=== PATIENT | female | born 1940 | race Caucasian/White ===

== ENCOUNTER → 2017-02-19 | Outpatient (CLI) | payer OTHER | LOC: CIMAGING 14:57 | PROVIDERS: ATTEND Surgery | DX: I70.8 Atherosclerosis of other arteries (principal) | CPT/HCPCS: 93880-PO ==

== ENCOUNTER 2018-01-29 17:21 | Inpatient (IN) | payer OTHER ==
--- NOTE | 2018-01-29 17:57 | EDPHY ---
H & P Stated Complaint: HYPOXIA TACHYCRDIA PO2 USUALLY IN 80'S BUT NOW IN 70'S Time Seen by Provider: 01/29/18 17:36 HPI/ROS: CHIEF COMPLAINT: Hypoxia, headache HISTORY OF PRESENT ILLNESS: 77-year-old female went to see her primary care physician today with complaints of a headache which are occurring at night while she is sleeping for the last week. She was noted to be hypoxic to 77% on arrival to her primary care physician's office. Patient herself states that on occasions over the past several years she has been told she has low oxygen with readings in the 80s but she has never had a diagnosis a never been told to be on home O2. Patient's primary care office reports that the last time her sats were checked there they were in the 90s. Patient denies any fevers or chills. She denies any cold symptoms, cough, upper respiratory infection symptoms, shortness of breath, palpitations, vomiting, diarrhea, lightheadedness, chest pain. Patient does report that her father law has been admitted to the hospital for pneumonia and she has been spending time with him. She however denies feeling ill or having a fever. She does report the last 3 months of night sweats. REVIEW OF SYSTEMS: A comprehensive 10 system review of systems was reviewed and is otherwise negative aside from elements mentioned in the history of present illness. PAST MEDICAL HISTORY: Patient denies history of pulmonary disease, COPD, pneumonia, hypertension, or cardiac issues. Denies history of DVTs or PEs. SOCIAL HISTORY: Nonsmoker. VITAL SIGNS Reviewed by me. O2 sat at 65% when walking to the bathroom. GENERAL: Well-developed, well-nourished, appears in no respiratory distress. Good color.. HEENT: Atraumatic. Eyes: No icterus, no injection. Mouth: moist mucous membranes. No erythema or lesions. Neck: supple with no adenopathy. LUNGS: Clear to auscultation bilaterally, no wheezes, rhonchi or rales. CARDIAC: Regular rate, occasional premature beat, no rubs murmurs or gallops. ABDOMEN: Soft, nontender, nondistended, bowel sounds normal. BACK: No CVA tenderness. EXTREMITIES: No trauma. Trace edema. NEURO: Alert and oriented, grossly nonfocal. SKIN: Warm and dry, no rash. PSYCHIATRIC: Normal mentation, no agitation. - Personal History Current Tetanus Diphtheria and Acellular Pertussis (TDAP): Unsure - Medical/Surgical History Hx Asthma: No Hx Chronic Respiratory Disease: No Hx Diabetes: No Hx Cardiac Disease: No Hx Renal Disease: No Hx Cirrhosis: No Hx Alcoholism: No Hx HIV/AIDS: No Hx Splenectomy or Spleen Trauma: No Other PMH: HYPOXIA - Social History Smoking Status: Never smoked Constitutional: Initial Vital Signs Temperature (C) 36.6 C 01/29/18 17:26 Heart Rate 95 01/29/18 17:26 Respiratory Rate 18 01/29/18 17:26 Blood Pressure 166/103 H 01/29/18 17:26 O2 Sat (%) 77 L 01/29/18 17:26 O2 Delivery Mode Room Air O2 (L/minute) 6 Allergies/Adverse Reactions: Sulfa (Sulfonamide Antibiotics) Allergy (Verified 01/29/18 17:26) Home Medications: Medication Instructions Recorded Herbals/Supplements -Info Only 1 ea PO DAILY 01/29/18 Albuterol Sulfate [Proair Hfa] 8.5 gm IH TID #1 hfa.aer.ad 01/31/18 predniSONE 60 mg PO DAILY #18 tablet 01/31/18 Medical Decision Making - Diagnostics EKG Interpretation: 12-LEAD EKG: Please see the full report in [facility]. My interpretation: [ ] Imaging Results: CT scan chest Impression: 1. No evidence of pulmonary embolism, thoracic aortic dissection, or pericardial effusion. 2. Bibasilar atelectasis with more patchy consolidation in the left lower lobe compatible with pneumonia. 3. 3.1 cm cystic lesion in the dome the liver incompletely characterized but may represent simple hepatic cyst. 4. 2.3 cm left adrenal nodule incompletely characterized. Further evaluation with three-phase CT abdomen is recommended. Dr. Rivers was notified of these findings by telephone at 9:30 PM on 2017. Dictated By: Kenroy Tompkins MD Imaging: Discussed imaging studies w/ house calls nurse practitioner Radiologist ED Course/Re-evaluation: 77-year-old female presenting with significant hypoxemia. Patient does state that on occasion her sats have been measuring in the 80s but she has never been given a respiratory diagnosis of O2. She complained of a nighttime headache for the last week and was noted by her PCP to be hypoxic to 77%. While in the emergency department, after walking to the bathroom, her sat was 65%. Evaluation: EKG demonstrating normal sinus rhythm. No acute ischemic changes. Chest x-ray no infiltrate. Some hypoventilation and by basilar atelectasis. Labs: No significant findings related to patient's significant hypoxemia. CT scan of the chest with IV contrast was ordered to evaluate for venous thromboemboli. Patient tells me that she had a CT angiogram of her neck in the past, and following this, she developed acute gout in both feet. She is somewhat reluctant to undergo CT scanning here, but I did persuade her that we will premedicate her with Solu-Medrol and will certainly watch for the development of any gouty arthritis following her CT scan. CT scan with IV contrast: patchy consolidation in LLL, possible pneumonia. No PE. Patient already admitted at time of these results. Patient's course discussed with Dr. Ben Liriano. Patient will be admitted to the medicine service for further evaluation of her significant hypoxemia. Differential Diagnosis: Differential diagnoses for the patient's symptom complex was considered including but not limited to pneumonia, COPD, bronchitis, pulmonary embolism, cardiac causes. Consult/Admit Bed Type: Dr. Ben Holt, [facility] - Data Points Laboratory Results: Laboratory Results 01/29/18 17:43 01/29/18 17:43 Medications Given: Discontinued Medications Albuterol/Ipratropium (Duoneb) 3 ml IH QID [facility] Stop: 07/29/18 05:59 Last Admin: 01/31/18 11:35 Dose: 3 ml Enoxaparin Sodium (Lovenox) 40 mg SC DAILY [facility] Stop: 07/29/18 08:59 Last Admin: 01/31/18 12:10 Dose: Not Given Sodium Chloride (Ns) 1,000 mls @ 0 mls/hr IV ONCE ONE; Wide Open PRN Reason: Protocol Stop: 01/29/18 19:21 Last Admin: 01/29/18 19:43 Dose: 1,000 mls Levofloxacin/Dextrose (Levaquin 750 Mg (Premix)) 150 mls @ 100 mls/hr IV DAILY@ 2300 TAMRA PRN Reason: Protocol Stop: 02/28/18 22:59 Last Admin: 01/30/18 22:28 Dose: 150 mls Lorazepam (Ativan) 0.25 mg PO HS PRN PRN Reason: Sleep/Insomnia Stop: 07/29/18 00:19 Last Admin: 01/30/18 00:38 Dose: 0.25 mg Lorazepam (Ativan) 0.5 mg PO HS PRN PRN Reason: Sleep/Insomnia Stop: 07/29/18 00:19 Last Admin: 01/30/18 22:29 Dose: 0.5 mg Methylprednisolone Sodium Succinate (Solu-Medrol) 125 mg IVP EDNOW ONE Stop: 01/29/18 19:22 Last Admin: 01/29/18 19:44 Dose: 125 mg Prednisone (Prednisone) 60 mg PO DAILY TAMRA Stop: 07/29/18 09:59 Last Admin: 01/31/18 09:29 Dose: 60 mg Point of Care Test Results: Chemistry 01/29/18 18:20 POC Troponin I 0.01 ng/mL ng/mL (0.00-0.08) Blood Gas/Lactic Acid-Arterial 01/29/18 18:27 POC Blood Source VENOUS Blood Gas/Lactic Acid-Venous 01/29/18 18:27 POC VBG pH 7.43 H (7.31-7.42) POC VBG pCO2 42 mmHg mmHg (40-44) POC VBG pO2 36 mmHg mmHg (35-40) POC VBG HCO3 28 mEq/L H mEq/L (22-26) POC VBG Total CO2 29 mEq/L H mEq/L (21-27) POC VBG Base Excess 3.0 mEq/L H mEq/L (-2.5-2.5) POC Mix VBG O2 Sat 71 % % (65-75) POC Lactic Acid Tawanda 0.9 mmol/L mmol/L (0.7-2.1) Departure - Departure Disposition: [facility] Acute Clinical Impression: Hypoxia Condition: Fair
[2018-01-29 18:18] LABS: PLATELET COUNT 248 10^3/uL (150-400)
[2018-01-29] MEDS ORDERED: IOPAMIDOL (ISOVUE 370) 100 ML BTL IV ONE (19:04)
[2018-01-29] MEDS ORDERED: NS 1,000 ML IV ONE (19:20)
[2018-01-29] MEDS ORDERED: methylPREDNISolone SOD SUCC 125 MG/2 ML VIAL IVP ONE (19:21)
[2018-01-29] MEDS ORDERED: ACETAMINOPHEN 325 MG TAB PO PRN (21:40)
[2018-01-29] MEDS ORDERED: HYDROCODONE/APAP 5/325 TAB PO PRN (21:40)
[2018-01-29] MEDS ORDERED: ALBUTEROL 3 ML DEYVIAL IH PRN (21:40)
[2018-01-29] MEDS ORDERED: ONDANSETRON DISINTEGRATING 4 MG TAB PO PRN (21:40)
[2018-01-29] MEDS ORDERED: ONDANSETRON 4 MG/2 ML VIAL IVP PRN (21:40)
[2018-01-29] MEDS ORDERED: hydrALAZINE 20 MG/ML VIAL IVP PRN (22:22)
--- NOTE | 2018-01-29 23:00 | GHP ---
DATE OF ADMISSION: 01/29/2018 CHIEF COMPLAINT: Low oxygen. HISTORY: This is a 77-year-old female with a past medical history of carotid body tumor, status post removal, otherwise relatively benign history, presenting with complaints of noticing that she has adkins d low O2. The patient notes she first noticed this after her surgery in 2015, at which time she was in the 80s. She was discharged home without oxygen, as her surgeon presumed this was postop hypoxia that would improve. She notes that more recently, she has been developing headaches occurring largel y at night and became concerned that perhaps, again, she had low oxygen. She notes her father reside s in a intermediate, and while there, she checked her oxygen and noted that it was 82%. Apparently, at her primary care physician's office today, her oxygen was also noted to be 77%. She, otherwise, s tates that she has felt fine other than the headaches that occur at night. She does state that somet imes she wakes up at night gasping for air, though she is uncertain if she snores or has sleep apnea. She also notes that she cannot sleep flat at night or she will feel short of breath, so she does sl eep somewhat propped up. She denies any cough or wheeze. She has not had any fevers or chills. She does state that she has been spending time with her [id number], who has recently been diagnosed w ith pneumonia. PAST MEDICAL HISTORY: Includes: 1. Carotid body tumor, status post removal. 2. Chronic knee issues, status post meniscal repair and in need of knee replacements. 3. Hysterectomy. 4. Cholecystectomy. 5. Ankle reconstruction. FAMILY HISTORY: Father with colon cancer in his 80s. Sister also with low O2 for unclear reasons. SOCIAL HISTORY: She is a never smoker. She drinks alcohol regularly but denies heavy drinking. She is . REVIEW OF SYSTEMS: 10-point review of systems obtained, negative except as per HPI. HOME MEDICATIONS: None. ALLERGIES: Sulfa. PHYSICAL EXAM: VITAL SIGNS: BP 178/120, heart rate 106, respiratory rate 16, O2 sats 92% on 6 L. S he was 65% on room air. GENERAL APPEARANCE: This is a well-developed/well-nourished female. She is awake and alert, in no acute distress. EYES: Anicteric. HENT: Oropharynx clear. CARDIOVASCULAR: Regular rate and rhythm. No M/R/G. PULMONARY: Poor inspiratory effort and overall shallow breath ing. Air sounds are symmetrical and clear, without wheezes, rales, or rhonchi appreciated. Question slight crackles in the left base that cleared with cough. ABDOMEN: Soft, nontender, nondistended. EXTREMITIES: No clubbing, cyanosis, or edema. SKIN: Warm, dry, well perfused. NEURO/PSYCH: Orie nted, appropriate, pleasant. CLINICAL DATA/LABS REVIEWED: Notable for a white blood cell count of 4.4, hematocrit of 45.7, MCV of 101.6, platelets of 248. D-dimer is 0.4. Chemistry: Unremarkable. ProBNP 657. Chest x-ray, pers onally reviewed and interpreted, shows hypoventilation, bibasilar atelectasis without pneumonia or ef fusion. Chest CTA shows no evidence of PE or pericardial effusion. There is bibasilar atelectasis with a mor e patchy consolidation in the left lower lobe compatible with pneumonia, likely hepatic cyst and an a drenal nodule. ASSESSMENT/PLAN: This is a 77-year-old female with a limited past medical history, presenting with a cute hypoxic respiratory failure. 1. Acute hypoxic respiratory failure. The patient believes this may be more of a chronic issue, tho ugh difficult to assess by history. Per her primary care physician's records, her O2 sats in the off ice have typically been in the 90s. At this point, her imaging is most consistent with atelectasis a nd possible left lower lobe pneumonia as per next. Plan for now will be to treat with antibiotics, i ncentive spirometry, nebulizer treatments. I would recommend that she have followup for pulmonary fu nction testing, as well as a sleep study. She likely will need to be discharged home on oxygen. Als o, we will obtain an echocardiogram given noted history of what sounds like paroxysmal nocturnal dysp monique and orthopnea. 2. Question pneumonia. Imaging consistent with possible left lower lobe pneumonia, though she does not give any symptoms consistent with that other than the hypoxia. Respiratory PCR was negative. We will obtain blood cultures and procalcitonin. We will start levofloxacin for now. We will have pat ient do incentive spirometry q.1 hour given her atelectasis and shallow inspiration noted. 3. Hypertension/uncontrolled. Patient with relatively high blood pressure since arriving here. Loo edel back, this has been an issue in the past as well. She is not on any antihypertensive medication s at home. I will start hydralazine p.r.n. Again, obtaining an echocardiogram in the morning but qu moiz some component of hypertensive cardiomyopathy contributing to her hypoxia. She will likely need to be discharged home on antihypertensives. Again, would also work her up for obstructive sleep apne a. 4. Adrenal nodule, incidental finding on CT imaging. Radiology does recommend followup with a 3-pha se CT abdomen, though given that she received diet today, we will hold off on that for the time being . This could be either arranged as an outpatient or later in this hospital stay if her hospital stay is prolonged. 5. Disposition. Observation status. Suspect patient will require less than a 48-hour stay for eval uation and management of above. 6. Patient is new to my care. Old records reviewed and summarized as per History of Present Illness and Past Medical History. Care plan reviewed with emergency room physician, including plans for wor kup of new-onset hypoxia. /[id number]/MODL
[2018-01-30] MEDS ORDERED: LORazepam 0.5 MG TAB PO PRN ×2 (00:20→19:55)
[2018-01-30 05:11] LABS: PLATELET COUNT 223 10^3/uL (150-400)
[2018-01-30] MEDS: IPRATROPIUM/ALBUTEROL 3 ML DEYVIAL IH SCH ×4 (06:39→20:11)
--- NOTE | 2018-01-30 10:00 | HOSPPROG ---
Hospitalist Progress Note Assessment/Plan: #Acute vs Chronic vs Acute on Chronic Respiratory Failure -Etiology unclear -Has been started on Levaquin for possible Left sided pneumonia, but pc is unremakable. For now I will continue with -She denies cough or SOB which would argue towards chronicity -will start trial of Steroids, she did get Solumedrol in the ER -Cont nebs, however, she refused this the morning -she appears Euvolemic. TTE is pending. NO chest pain. -If does not improve and pending clinical course/studies, will consider Pulm consultation #HTN -monitoring for now. Somewhat improved from yesterday. Will await TTE. Has not needed Hydralazine. #Adrenal Nodule -this will be followed as an outpatient with [address] of the Abd/Pelvis #Hx of Carotid body tumor, s/p removal Plan: She is on 6 L of O2, Has not improved. Will change to inpatient. more reccs pending w/u and clinical course Lovenox for DVT proph Subjective: now on 6 L of O2. not symptomatic. Denies CP or SOB. afebrile. no cough Objective: Vital Signs Temp Pulse Resp BP Pulse Ox 36.7 C 98 18 143/97 H 90 L 01/30/18 07:28 01/30/18 07:28 01/30/18 07:28 01/30/18 07:28 01/30/18 07:28 Laboratory Results 01/30/18 04:58 01/30/18 04:58 01/29/18 01/30/18 01/31/18 05:59 05:59 05:59 Intake Total 250 Balance 250 - Physical Exam Constitutional: no apparent distress Eyes: PERRL Ears, Nose, Mouth, Throat: moist mucous membranes, hearing normal Cardiovascular: regular rate and rhythym, No edema Respiratory: no respiratory distress, other (somewhat prolonged exp phase) Gastrointestinal: normoactive bowel sounds, soft, non-tender abdomen Skin: warm Neurologic: AAOx3 Psychiatric: interacting appropriately, not anxious, not encephalopathic ICD10 Worksheet Patient Problems: Problems Problem Status Onset Carotid body tumor Acute
--- NOTE | 2018-01-30 10:01 | ECHO ---
[email or web address] [address] Main: [phone] Fax: [email or web address] Echocardiogram Name: RAÚL MOJICA MR#: [id number] Study Date: 01/30/2018 Study Time: 08:22 AM Date of : 1940 Age: 77 year(s) Height: 167.6 cm (66 in.) Weight: 79.38 kg (175 lb.) BSA: 1.89 m2 Gender: Female Examination: Echo Indication: hypoxia, PND Image Quality: Adequate Contrast: Requested by: Ben Liriano BP: 143 mmHg/97 mmHg Heart Rate: Rhythm: Indication: hypoxia, PND Procedure Staff Emery Wheel Molder: Tri Perez RDCS Reading Physician: Raul Carter MD Requesting Provider: Conclusions: Normal size left ventricle. Normal global systolic LV function. The ejection fraction is visually estimated to be 55 %. No regional wall motion abnormality. Normal diastolic LV function. The left atrium is mildly dilated. Mild mitral valve leaflet calcification is present. Mild mitral valve regurgitation is present. Mild tricuspid regurgitation is present. Right ventricular systolic pressure measures 33mmHg. Measurements: Chambers Valvular Assessment AV/MV Valvular Assessment TV/PV Normal Normal Normal Name Value Range Name Value Range Name Value Range Ao Annie (2D): 3.0 cm (1.4 cm-2.6 AV Vmax: 1.29 m/s (1 m/s-1.7 TR Vmax: 2.63 mm/s ( - ) cm) m/s) TR PGmax: 28 mmHg ( - ) IVSd (2D): 1.1 cm (0.6 cm-1.1 AV maxP mmHg ( - ) syst. PAP: 33 mmHg ( - ) cm) AV meanP mmHg ( - ) PV Vmax: 0.94 m/s (0.6 m/s-0.9 LVDd (2D): 4.8 cm (3.9 cm-5.3 JAYDE (VTI): 2.0 cm ( - ) m/s) cm) MV E Vmax: 0.52 m/s ( - ) PV PGmax: 4 mmHg ( - ) LVDs (2D): 3.2 cm (2.1 cm-4 MV A Vmax: 0.99 m/s ( - ) cm) MV E/A: 0.53 ( - ) LVPWd (2D): 0.9 cm ( - ) MV PHT: 0.075 s ( - ) LVOTd 2.1 cm 2.1 cm mm MVA (PHT): 2.9 s ( - ) Visual EF: 55 % RVDd(2D): 3.7 cm (1.9 cm-3.8 cmmm) Continued Measurements: Patient: RAÚL MOJICA Study Date: 01/30/2018 Page 1 of 2 08:22 AM Chambers Valvular Assessment AV/MV Valvular Assessment TV/PV Name Value Name Value Name Value LADs: 4.3 cm MV DecTime: 254 m/s CVP (est.): 5 mmHg LADs Lon.2 cm MV E' Septal: 0.04 m/s LA Area: 21.1 cm2 MV E/E' Septal: 12.80 LA Volume: 53 ml MV E/E' Lateral: 9.30 LA Volume Index: 28.0 ml/m2 RA Area: 17.7 cm2 Additional Vessels Name Value Ao Ascendin.2 cm Inferior Vena Cava: 1.4 cm Findings: Left Ventricle: Normal size left ventricle. No LV hypertrophy. Normal global systolic LV function. The ejection fraction is visually estimated to be 55 %. No regional wall motion abnormality. Normal diastolic LV function. Right Ventricle: Normal size right ventricle. Normal RV function. Left Atrium: The left atrium is mildly dilated. Right Atrium: The right atrium is normal in size. Mitral Valve: The mitral valve is normal in appearance and function. Mild mitral valve leaflet calcification is present. Mild mitral valve regurgitation is present. No mitral stenosis is present. Aortic Valve: The aortic valve is tri-leaflet. Aortic sclerosis is present. There is no significant aortic valve regurgitation. No aortic valve stenosis is present. Tricuspid Valve: The tricuspid valve is normal in appearance and function. Mild tricuspid regurgitation is present. The pulmonary artery pressure is normal. Right ventricular systolic pressure measures 33mmHg. Pulmonic Valve: The pulmonic valve is normal in appearance and function. Mild pulmonic valve regurgitation is noted. Aorta: The aorta is normal. Normal size aortic root measuring 3.0 cm. Normal size ascending aorta measuring 3.2 cm. IVC: The IVC is normal sized. Pericardium: No pericardial effusion. No pleural effusion. (No Signature Object) Patient: RAÚL MOJICA Study Date: 01/30/2018 Page 2 of 2 08:22 AM [id number]
--- NOTE | 2018-01-30 10:05 | ASMTCMCOM ---
CM Note CM Note Notes: Chart reviewed. 77 year old female admitted via ED with hypoxia, diagnosis of PNA. Needs TBD at this time. CM to follow. Plan: TBD Date Signed: 01/30/2018 10:04 AM Electronically Signed By:Cathy Rubalcava RN
[2018-01-30] MEDS: ENOXAPARIN 40 MG/0.4 ML SYR SC SCH (10:22)
[2018-01-30] MEDS: predniSONE 20 MG TAB PO SCH (10:31)
--- NOTE | 2018-01-30 12:52 | PDMN ---
Medical Necessity Medical necessity: Change to inpt as of 01/30/18 @ 10:02. Pt meets inpt criteria per MD order and Respiratory Failure GRG, Respiratory failure, unspecified with hypoxia. 77 y/o admitted w/ hypoxic resp failure requiring 6 LO2 upon admission with no improvement over night, chest CTA shows possible LLL pneumonia, IV ABX' s. Anticiapte>2MN for further med nec evaluation/treatment.
--- NOTE | 2018-01-30 16:24 | GCON ---
PULMONARY/CRITICAL CARE CONSULTATION DATE OF CONSULTATION: 01/30/2018 REFERRING PHYSICIAN: Yemi Lemon MD REASON FOR REFERRAL: Evaluation and management of hypoxemia. HISTORY: The patient is a 77-year-old woman who reports a longstanding history of hypoxemia, as well as some dyspnea. She states that the first time this was noticed was after right carotid body resec tion in 2015. She was a bit hypoxemic, but was discharged without oxygen, as it was felt that this h ypoxemia would improve. She has had her oxygen checked several times since then, and it has often be en in the 80s, but occasionally in the 90s. She reports having dyspnea on exertion, but it is hard f or her to gauge whether this has gotten any worse because her activity is currently quite limited by back pain, as well as some knee pain. She does walk her dog, but again, the distance that she walks is primarily limited by back pain. She denies any cough at all. She presented to the emergency depa rtment because she saw her primary care doctor due to having headaches at night, in the morning, and she thought she might have low oxygen levels. In her doctor's office, her oxygen saturations were 77 %, so she was sent to the emergency department, where she was also found to be hypoxemic and was admi tted. She currently denies any cough or fevers, and denies chest pain. She has no prior history of lung disease, including asthma. She denies any wheezing. PAST MEDICAL HISTORY: 1. 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 2. Degenerative joint disease with chronic back pain and chronic knee pain. 3. Hysterectomy. MEDICATIONS: At the time of admission, none. ALLERGIES: Sulfa. SOCIAL HISTORY: The patient never smoked. She drinks alcohol frequently, but not in excess. She is . FAMILY HISTORY: Unremarkable. REVIEW OF SYSTEMS: A 10-point review of systems adds nothing to the History of Present Illness. PHYSICAL EXAMINATION: GENERAL: The patient is awake, alert, and in no acute distress. VITAL SIGNS: Blood pressure is 139/91, with a heart rate of 88. Oxygen saturations are 93% on 5 L of oxygen. H EENT: Normocephalic and atraumatic. No icterus. NECK: No JVD. Trachea is midline. CHEST: She h as some basilar rales. CARDIAC: Regular rate and rhythm, without murmur. ABDOMEN: Soft, nontender . Bowel sounds are present. EXTREMITIES: No clubbing, cyanosis, or edema. NEURO: The patient is awake and alert. She has no gross motor or sensory deficits. LABORATORY DATA: Hemoglobin is 15.5. Chemistry group is unremarkable. A venous blood gas shows a p H of 7.43, with a pO2 of 36 and a pCO2 of 42. Her venous lactate is 1.7. A CT scan of the chest miguelangel ws an elevated right diaphragm, with some right greater than left basilar atelectasis. Images were r eviewed by me. Chest x-ray from 01/29 shows an elevated right diaphragm with some atelectasis. This is new when compared to her prior chest x-ray in 2008. Images reviewed by me. An echocardiogram sh ows normal global systolic function with an ejection fraction of 55%. RVSP is 33 mmHg. ASSESSMENT: Hypoxemia. This is most likely due to atelectasis, with an elevated right diaphragm. S he also has some atelectasis on the left as well. I felt that she could have a paralyzed right diaph ragm after following the carotid body resection and lymph node dissection. However, a fluoroscopy of the diaphragm demonstrates elevation of the diaphragm without paradoxical motion, so it would appear that the patient does not have phrenic nerve paralysis. The elevated right diaphragm appears to be more due to hepatic congestion/steatosis. The patient does not have clinical signs/symptoms of pneum onia, and the hypoxemia seems to be fairly chronic. It is possible she has more significant hypoxemi a at night, and may have sleep apnea contributing to her nighttime headache. RECOMMENDATIONS: 1. Check liver function tests to assess for the presence of COLLAZO. 2. I think the patient can be discharged home on supplemental oxygen. 3. Frequent incentive spirometry. Will also try to get a positive-pressure valve to help with atele ctasis. 4. The patient was encouraged to obtain and maintain significant weight loss, which will likely impr ove her atelectasis and hypoxemia. 5. The patient should call my office at [phone] to arrange followup. I will try to arrange to have overnight oximetry performed prior to this. /[id number]/MODL
[2018-01-31] MEDS: IPRATROPIUM/ALBUTEROL 3 ML DEYVIAL IH SCH ×2 (06:18→11:35)
--- NOTE | 2018-01-31 09:13 | PDHOMEO2F ---
Home Oxygen Face to Face Home Orders: I certify that a physician or a nurse practitioner or physician's department assistant has had a omle-pm-bghw encounter with this patient on the date of this order due to the diagnosis listed, which relates to the primary reason the patient requires home oxygen. Alternative treatments have been tried, or considered, and deemed ineffective. It is anticipated that supplemental oxygen will result in improvement with treatment. Home oxygen qualifying diagnosis: Atelectasis, obesity hypoventilation, chronic resp failure SpO2 on room air (%): 76 Frequency of home oxygen needed: continuous Home oxygen liters per minute: 6 Home oxygen delivery device: nasal cannula Concentrator: Yes E-tanks for mobility and back up: Yes If ordering portable O2, is the patient mobile in the home?: Yes I certify that, based on these findings, the home oxygen is medically necessary for this patient for the following length of time. Length of time home oxygen needed: 99 years
[2018-01-31] MEDS: predniSONE 20 MG TAB PO SCH (09:29)
[2018-01-31] MEDS: ENOXAPARIN 40 MG/0.4 ML SYR SC SCH (12:10)
[2018-01-31 12:30] VITALS: BP 135/80
--- NOTE | 2018-01-31 13:33 | ASDISCHSUM ---
Discharge Information Plan Status:Home with No Needs Medically Cleared to Leave:01/31/2018 Discharge Date:01/31/2018 CM D/C Disposition:Home, Routine, Self-Care ADT D/C Disposition:Home, Routine, Self-Care Projected Discharge Date:01/31/2018 Transportation at D/C:Family Discharge Delay Reason: Follow-Up Date:01/31/2018 Discharge Slot: Final Diagnosis: Placement Information Patient Contact Information Contact Name:ROLANDA Relationship:Bright Address: Home Phone: City: [facility] Phone: State/[place] S&T Code: Email: Financial Information Financial Class:Medicare Advantage Plans Primary Plan Desc:[facility] [employer] Primary Plan Number:[id number] Secondary Plan Desc: Secondary Plan Number: Assessment Information LACE LACE Length of stay for Answers: 1 day current admission Acuity / Level of Answers: Yes Care: Did the patient have an inpatient admission? Comorbidities - select Answers: Other Notes: Hypoxia all that apply # of Emergency department Answers: 1-2 visits in the last 6 months Score: 6 Date Signed: 01/31/2018 01:30 PM Electronically Signed By:SCOTT Durham [facility] CM Progress Note CM Note CM Note Notes: Chart reviewed. 77 year old female admitted via ED with hypoxia, diagnosis of PNA. Needs TBD at this time. CM to follow. Plan: TBD Date Signed: 01/30/2018 10:04 AM Electronically Signed By:Cathy Rubalcava RN Case Management Discharge Plan Note Case Management Discharge Discharge Order Complete? Answers: Yes Patient to Obtain Answers: via Family Medications Transportation Arranged Answers: Family/Friends Discharge Comments Notes: Pt is discharging home today with no CM needs. Respiratory Therapy setting up Home O2. Date Signed: 01/31/2018 01:32 PM Electronically Signed By:SCOTT Durham Intervention Information
--- NOTE | 2018-01-31 13:37 | PDDCSUM ---
Discharge Summary Discharge Summary: 77 YO admitted with hypoxemia. Likely chronic hypoxemia. Etiology unclear. She was initially started on Levaquin but this was stopped. She was started on steroids and reports that she feels like she has had some improvement. Will cont the steroids on discharge. Dr. Lopez provided consultation and the pt will f/u with him in 1-2 weeks. #Acute vs Chronic vs Acute on Chronic Respiratory Failure -Etiology unclear -Had been started on Levaquin for possible Left sided pneumonia, but pc is unremakable. No signs of infection. Therefore it was stopped -She denies cough or SOB which would argue towards chronicity -steroid taper -albuterol inhaler -TTE unremarkable -she will f/u with Pulm in 1-2 weeks for further w/u and management -has been set up for home O2 #Elevated right diaphragm -no e/o of phrenic nerve injury #Atelectasis #HTN, labile -will need f/u with PCP #Adrenal Nodule -this will be followed as an outpatient with [address] of the Abd/Pelvis #Hx of Carotid body tumor, s/p removal Exam: NAD AAOX3 RRR LUNGS: DECREASED LUNG SOUNDS ABD: S/NT/ND EXT: NO LE EDEMA MEDS: SEE MED REC F/U: WITH PCP NEXT WEEK. WITH DR. LOPEZ IN 1-2 WEEKS TOTAL TIME SPENT ON DISCHARGE IS 35 MINS
== END 2018-01-31 14:44 | disposition home or self-care (01) | DRG 189 ==
LOC: F1N 22:20
PROVIDERS: ADMIT Internal Medicine; ATTEND Internal Medicine
DX: J96.20 Acute and chronic respiratory failure, unspecified whether with hypoxia or hypercapnia (principal); J98.11 Atelectasis; I10 Essential (primary) hypertension; E27.9 Disorder of adrenal gland, unspecified
CPT/HCPCS: 83605-PO; 84484-PO; 96374; G0378; J0360; J1650; J1956; J2930; J7512; Q9967

== ENCOUNTER → 2018-07-23 | Outpatient (CLI) | payer OTHER | LOC: FIMAGING 12:00 | PROVIDERS: ATTEND Internal Medicine Critical Care Medicine | DX: J98.11 Atelectasis (principal); R53.1 Weakness ==

== ENCOUNTER → 2018-08-27 | Outpatient (CLI) | payer OTHER | LOC: CIMAGING 17:21 | PROVIDERS: ATTEND Internal Medicine Critical Care Medicine | DX: J98.11 Atelectasis (principal); J98.4 Other disorders of lung | CPT/HCPCS: 71046-PO ==

== ENCOUNTER 2018-09-01 15:27 | Inpatient (IN) | payer OTHER ==
[2018-09-01] MEDS ORDERED: NS 500 ML IV ONE ×2 (15:46→16:44)
[2018-09-01] MEDS ORDERED: IPRATROPIUM/ALBUTEROL 3 ML DEYVIAL IH ONE (15:47)
[2018-09-01] MEDS ORDERED: IPRATROPIUM/ALBUTEROL 3 ML DEYVIAL ONE (15:47)
--- NOTE | 2018-09-01 15:50 | EDPHY ---
H & P Stated Complaint: pt with increasing hypoxia oxygen requirement since february/ pulmonoligist i Time Seen by Provider: 09/01/18 15:47 HPI/ROS: HPI CHIEF COMPLAINT: Low oxygen level 66% on 5 L nasal cannula HISTORY OF PRESENT ILLNESS: Patient is a 77-year-old female she arrives to the emergency room moderate respiratory distress with kidney a an a 66% sat on 5 L. She presents emergency room shortness of breath. This is apparently been a chronic problem she was 5 L nasal cannula at home. She does worsening shortness of breath and her daughter reports increasing confusion. Denies productive cough, denies chest pain, denies fever, denies vomiting Past Medical History: Significant medical history for chronic hypoxia Past Surgical History: Gallbladder, knee surgery, carotid body tumor Social History: Denies drugs alcohol tobacco. Family History: Noncontributory ROS REVIEW OF SYSTEMS: 10 Systems were reviewed and negative with the exception of the elements mentioned in the history of present illness. Exam Constitutional triage nursing summary reviewed, vital signs reviewed, awake/ alert. Saturation 66%. Eyes normal conjunctivae and sclera, EOMI, PERRLA. HENT normal inspection, atraumatic, moist mucus membranes, no epistaxis, neck supple/ no meningismus, no raccoon eyes. Respiratory moderate respiratory distress. Cardiovascular rate normal, regular rhythm, no murmur, no edema, distal pulses normal. Gastrointestinal soft, non-tender, no rebound, no guarding, normal bowel sounds, no distension, no pulsatile mass. Genitourinary no CVA tenderness. Musculoskeletal no midline vertebral tenderness, full range of motion, no calf swelling, no tenderness of extremities, no meningismus, good pulses, neurovascularly intact. Skin pink, warm, & dry, no rash, skin atraumatic. Neurologic awake, alert and oriented x 3, AAOx3, moves all 4 extremities equally, motor intact, sensory intact, CN II-XII intact, normal cerebellar, normal vision, normal speech. Psychiatric normal mood/affect. Heme/Lymph/Immune no lymphadenopathy. Differential Diagnosis: Includes but is not limited to in a particular order pneumonia, pneumothorax, pulmonary embolism, chronic hypoxic respiratory failure Medical Decision Making: Plan for this patient IV establishment youth nutritional monitor , EKG, troponin, chest x-ray, breathing treatment, supplemental oxygen, ABG. Re-evaluation: EKG interpretation by me on record in [employer] system. Impression time of EKG 1548 sinus tach 100 no signs of acute ischemia, LVH present. CT angiogram of the chest called to me by Dr. Orr. No evidence of pneumonia. There is atelectasis, elevated right hemidiaphragm. Plan for admission for hypoxia, much improved at this time in the emergency room. 1809 is spoke with the hospitalist service Dr. Valadez agrees to admit. I updated the patient as well as daughter at bedside they agree for admission. Reason for admission hypoxia and confusion. Doing much better this time, on home oxygen level 5 L nasal cannula. Current vitals heart rate 108, pulse ox 95% on 5 L nasal cannula, blood pressure 129/70, afebrile no acute distress. Source: Patient, Family - Personal History Current Tetanus Diphtheria and Acellular Pertussis (TDAP): No - Medical/Surgical History Hx Asthma: No Hx Chronic Respiratory Disease: No Hx Diabetes: No Hx Cardiac Disease: No Hx Renal Disease: No Hx Cirrhosis: No Hx Alcoholism: No Hx HIV/AIDS: No Hx Splenectomy or Spleen Trauma: No Other PMH: HYPOXIA - Social History Smoking Status: Never smoked Constitutional: Initial Vital Signs Temperature (C) 36.7 C 09/01/18 15:36 Heart Rate 100 09/01/18 15:36 Respiratory Rate 22 H 09/01/18 15:36 Blood Pressure 106/77 09/01/18 15:36 O2 Sat (%) 66 L 09/01/18 15:36 O2 Delivery Mode Nasal Cannula O2 (L/minute) 5 Allergies/Adverse Reactions: Sulfa (Sulfonamide Antibiotics) Allergy (Verified 09/01/18 15:32) Home Medications: Medication Instructions Recorded Herbals/Supplements -Info Only 1 ea PO DAILY 01/29/18 Albuterol Sulfate [Proair Hfa] 1 - 2 puffs IH Q4-6PRN PRN 09/01/18 Mometasone/Formoterol [Dulera 200 2 puffs IH BID 09/01/18 Mcg/5 Mcg Inhaler] Medical Decision Making - Data Points Laboratory Results: Laboratory Results 09/01/18 15:50 09/01/18 15:50 Medications Given: Albuterol (Proventil Neb) 3 ml IH Q2HRS PRN PRN Reason: Short of Breath/Dyspnea Stop: 02/28/19 18:21 Last Admin: 09/02/18 11:39 Dose: 3 ml Enoxaparin Sodium (Lovenox) 40 mg SC DAILY TAMRA Stop: 03/01/19 08:59 Last Admin: 09/02/18 10:32 Dose: 40 mg Melatonin (Melatonin) 3 mg PO HS TAMRA Stop: 02/28/19 23:14 Last Admin: 09/02/18 20:31 Dose: 3 mg Miscellaneous Medication (Mometasone/Formoterol [Dulera 200 Mcg/5 Mcg Inhaler]) 2 puffs IH BID TAMRA Stop: 02/28/19 20:59 Last Admin: 09/02/18 15:39 Dose: Not Given Trazodone HCl (Trazodone) 50 mg PO HS TAMRA Stop: 03/01/19 20:59 Last Admin: 09/02/18 20:31 Dose: 50 mg Discontinued Medications Albuterol/Ipratropium (Duoneb) 3 ml IH EDNOW ONE Stop: 09/01/18 15:48 Last Admin: 09/01/18 15:50 Dose: 3 ml Sodium Chloride (Ns) 500 mls @ 1,000 mls/hr IV EDNOW ONE PRN Reason: Protocol Stop: 09/01/18 16:15 Last Admin: 09/01/18 15:50 Dose: 500 mls Sodium Chloride (Ns) 500 mls @ 0 mls/hr IV ONCE ONE PRN Reason: Wide Open Stop: 09/01/18 16:45 Last Admin: 09/01/18 17:00 Dose: 500 mls Point of Care Test Results: Chemistry 09/01/18 16:28 POC Troponin I 0.01 ng/mL ng/mL (0.00-0.08) Departure - Departure Disposition: [facility] Inpatient Acute Clinical Impression: Hypoxia Condition: Serious
[2018-09-01 16:03] LABS: PLATELET COUNT 171 10^3/uL (150-400)
[2018-09-01 16:16] LABS: INR 0.93 (0.83-1.16); PROTIME(PATIENT) 12.1 SEC (12.0-15.0)
[2018-09-01] MEDS ORDERED: IOPAMIDOL (ISOVUE 370) 100 ML BTL IV ONE (16:49)
[2018-09-01] MEDS ORDERED: OXYCODONE/APAP 5/325 TAB PO PRN (18:22)
[2018-09-01] MEDS ORDERED: ALBUTEROL 3 ML DEYVIAL IH PRN (18:22)
[2018-09-01] MEDS ORDERED: PROMETHAZINE HCL 25 MG/ML INJ IVP PRN (18:22)
[2018-09-01] MEDS ORDERED: ACETAMINOPHEN 325 MG TAB PO PRN (18:22)
--- NOTE | 2018-09-01 18:41 | PDGENHP ---
History and Physical History and Physical: Chief complaint: shortness of breath History of present illness: Patient is a 77-year-old female with past medical history of idiopathic hypoxemia who presents with increased fatigue, generalized weakness, and hypoxemia. She is chronically on 5 L of oxygen via nasal cannula in sees local coordinator Dr. Kenroy Lopez. In the last several weeks, her dyspnea has progressively worsened. Last night she was having trouble breathing on 5 L of oxygen. Her daughter brought her into the hospital today, per recommendation of the patient's PCP and pulmonology offices. In the ED, patient was noted to be cyanotic. Patient quickly returned to her baseline breathing status on 5 L of oxygen in the ED. Chest x-ray showed bilateral atelectasis and hemidiaphragm elevation. Per the patient's daughter, the patient has been intermittently confused in the last few weeks. The patient did fall secondary to generalized weakness within the last week and thinks she might have hit her head. She has had a headache today, but she attributed it to dehydration. Patient has not felt like eating or drinking much in the last few weeks. Yesterday, the patient's son neurologist Dr. Finnegan, who was unable to do much workup because the patient was intermittently hypoxic and tachycardic. Her local coordinator had referred the patient to Neurology to be evaluated for neuro muscular disorder causing her diaphragm abnormality. Patient says she has a mild intention tremor at times, which interferes with her ability to complete some tasks. Past medical history: Hypoxia, bilat atelectasis, R hemidiaphragm elevation, Depression, hyperlipidemia, hypertension, paraganglioma Past surgical history: Ankle fracture, cholecystectomy, hysterectomy, paraganglioma excision Medications: Dulera, ProAir, on oxygen 5 L chronically. Allergies: Sulfa. Social history: Walks daily. Never smoker. Drinks alcohol occasionally. No illicit drug use. . Family history: Colon cancer. Review of systems: 10 point review of systems was conducted and is negative except per HPI. Physical exam: Vitals: Reviewed General: The patient is an elderly female who is alert and in no acute distress. HEENT: normocephalic, extraocular movements intact, conjunctivae clear, no lesions on face. Mucous membranes moist. Neck: trachea midline, no visible masses, no external lesions. CV: +S1/S2, RRR, no MRG. Resp: unlabored, CTAB no RRW. Reduced breath sounds bilateral bases. Abd: soft and nondistended. Nontender. Musculoskeletal: Normal muscle tone and bulk. Intact motor function bilateral upper and lower extremities. Neuro: cranial nerves II - XII grossly intact. Intact gross motor and sensory function. Psych: appropriate mood/affect. Skin: No pallor. Heme/lymph: No peripheral edema. Labs: CBC 6.99 hemoglobin 11.9 platelets 171 INR 0.93 D-dimer 0.4 sodium 133. Chloride 79 potassium 4.3 CO2 46 BUN 12 creatinine 0.5 glucose 93 calcium 9.3 troponin I 0.01 proBNP 141. AB.39/78/38/75 % RA/46. Other Data: Chest x-ray bilateral elevated diaphragms. No acute cardiopulmonary process otherwise. CTA chest: No PE. Impression and plan: Acute resp failure - resolved Chronic respiratory failure -Compensated resp acidosis w/ metab alkalosis Bilateral hemidiaphragm elevation Bilateral atelectasis, chronic Gen weakness Fatigue Loss of appetite HTN HLD -ISU -supplemental O2, SVNs prn dyspnea. -Consult Pulm (order placed in chart). -Recheck ABG in AM. -Continue home meds. -PT/OT. -VTE ppx - Lovenox. Code status - DNR. Observation status.
[2018-09-01] MEDS: Mometasone/Formoterol [Dulera] 200 Mcg/5 Mcg Inhaler IH SCH (22:14)
[2018-09-01] MEDS: MELATONIN 3 MG TAB PO SCH (23:27)
[2018-09-02 05:15] LABS: PLATELET COUNT 144 10^3/uL (150-400)
[2018-09-02] MEDS: ENOXAPARIN 40 MG/0.4 ML SYR SC SCH (10:32)
--- NOTE | 2018-09-02 14:42 | HOSPPROG ---
Hospitalist Progress Note Assessment/Plan: 77 yo F a/w hypoxia 2/2 hypoventilation, elevated hemidiaphragms hypoventilation: almost certainly 2/2 poor diaphragmatic movement as evidenced by admit cxr she has used a capella valve in past but has "fallen off" with it of late resp acidosis: 2/2 above acute on chronic HRF: hypoventilation plus atelectasis notably, improves w supplemental 02, c/w hypovent etiology: suspect phrenic nerve injury during 2017 carotid surgery but will check c spine and brain mri, plus fluoro to see diaphragmatic excursion anxiety: ativan probably a bad idea trazodone for slepp proph: lmwh dispo: inpt Subjective: cxr's interp by me Objective: Vital Signs Temp Pulse Resp BP Pulse Ox 36.6 C 103 H 18 160/104 H 95 09/02/18 11:05 09/02/18 11:45 09/02/18 11:45 09/02/18 11:05 09/02/18 11:45 Laboratory Results 09/02/18 04:41 09/02/18 04:41 09/01/18 09/02/18 09/03/18 05:59 05:59 05:59 Intake Total 500 Output Total 600 Balance -100 PT 12.1 SEC (12.0-15.0) 09/01/18 15:50 INR 0.93 (0.83-1.16) 09/01/18 15:50 - Physical Exam Constitutional: no apparent distress, appears nourished Eyes: PERRL, anicteric sclera Ears, Nose, Mouth, Throat: moist mucous membranes, hearing normal Cardiovascular: regular rate and rhythym, no murmur, rub, or gallop Respiratory: no respiratory distress, other (crackles and absent breath sounds at bases) Gastrointestinal: normoactive bowel sounds, soft, non-tender abdomen Genitourinary: no bladder fullness, No singh in urethra Skin: warm Musculoskeletal: full muscle strength Neurologic: AAOx3 ICD10 Worksheet Patient Problems: Problems Problem Status Onset Hypoxia Acute Carotid body tumor Acute
[2018-09-02] MEDS: Mometasone/Formoterol [Dulera] 200 Mcg/5 Mcg Inhaler IH SCH ×2 (15:39→22:34)
--- NOTE | 2018-09-02 16:22 | ASMTCMCOM ---
CM Note CM Note Notes: Reviewed chart, pt brought to hospital for hypoxia. She lives alone and has had recent falls. Per OT pt seems confused at times. PT eval pending, HERB w/f. DC Plan: TBD Date Signed: 09/02/2018 04:21 PM Electronically Signed By:Jennifer Arroyo RN
[2018-09-02] MEDS: traZODone 50 MG TAB PO SCH (20:31)
[2018-09-02] MEDS: MELATONIN 3 MG TAB PO SCH (20:31)
[2018-09-03] MEDS: ENOXAPARIN 40 MG/0.4 ML SYR SC SCH (08:15)
[2018-09-03] MEDS: Mometasone/Formoterol [Dulera] 200 Mcg/5 Mcg Inhaler IH SCH (13:26)
--- NOTE | 2018-09-03 16:25 | PDMN ---
Medical Necessity Medical necessity: Pt meets inpt criteria per MD order and Pulmonary Disease GRG , 77 y/o w/hypoxia sec to hypoventilation, elevated hemidiaphragms, upgraded to inpt for resp acidosis r/t above w/pCO2 of 105 today (up from 78 yesterday), tachypnea w/resp 20-29 today, last HR 100. PMHx includes hypoxia, bilat atelectasis, R hemidiaphragm elev, depression, HTN, HLD, and paraganglioma. Est LOS>2MN for further med nec workup/monitoring/treatment.
--- NOTE | 2018-09-03 16:32 | ASMTCMCOM ---
CM Note CM Note Notes: PT/OT recommending SNF, CM met with pt and daughter. 1st choice is [facility], other refferrals sent to [email or web address] and [facility]. DC Plan: SNF Date Signed: 09/03/2018 04:31 PM Electronically Signed By:Jennifer Arroyo RN
--- NOTE | 2018-09-03 16:51 | HOSPPROG ---
Hospitalist Progress Note Assessment/Plan: 77 yo F a/w hypoxia 2/2 hypoventilation, elevated hemidiaphragms hypoventilation: almost certainly 2/2 poor diaphragmatic movement as evidenced by admit cxr she has used a capella valve in past but has "fallen off" with it of late nif testing demonstrates limited respiratory reserve 1. repeat abg 2. transfer to icu for bipap if not improved 3. willing to be intubated if needed resp acidosis: 2/2 above acute on chronic HRF: hypoventilation plus atelectasis notably, improves w supplemental 02, c/w hypovent etiology: possible phrenic nerve injury during 2017 carotid surgery but will check c spine and brain mri, plus fluoro to see diaphragmatic excursion no brainstem stroke on mri needs c spine mri neuro to see anxiety: ativan probably a bad idea trazodone for sleep proph: lmwh dispo: inpt Subjective: case d/w dr hooper. flouroscopy shows decreased diaphragmatic weakness Objective: Vital Signs Temp Pulse Resp BP Pulse Ox 36.6 C 92 27 H 122/82 H 97 09/03/18 16:36 09/03/18 16:36 09/03/18 16:36 09/03/18 16:36 09/03/18 16:36 PT 12.1 SEC (12.0-15.0) 09/01/18 15:50 INR 0.93 (0.83-1.16) 09/01/18 15:50 - Physical Exam Constitutional: no apparent distress, appears nourished Eyes: PERRL, anicteric sclera Ears, Nose, Mouth, Throat: moist mucous membranes, hearing normal Cardiovascular: regular rate and rhythym, no murmur, rub, or gallop Respiratory: no respiratory distress, no rales or rhonchi Gastrointestinal: normoactive bowel sounds, soft, non-tender abdomen Genitourinary: no bladder fullness, No singh in urethra Skin: warm, normal color Musculoskeletal: full muscle strength Neurologic: AAOx3 ICD10 Worksheet Patient Problems: Problems Problem Status Onset Hypoxia Acute Carotid body tumor Acute
--- NOTE | 2018-09-03 18:13 | ECHO ---
[email or web address] [address] [address] Main: [phone] Echocardiography Examination Transesophageal Name: RAÚL MOJICA MR#: [id number] Study Date: 09/03/2018 Study Time: 04:14 PM Date of : 1940 Age: 77 year(s) Height: 167.6 cm (66 in.) Weight: 68.04 kg (150 lb.) BSA: 1.77 m2 Gender: Female Examination: Echo Contrast: Image Quality: Rhythm: Tachycardia Heart Rate: 96 bpm BP: 132 mmHg/82 mmHg Indication: Hypoxia Procedure Staff Referring Physician: [employer] Adviser: Tobi Casillas RDCS Reading Physician: Adrian Hoffmann MD Requesting Provider: Indication: Hypoxia Measurements Chambers AV/MV Label Value Normal Value Label Value Normal Value LVOT Vmax 0.91 m/s (0.7m/s - 1.1m/s) AV PGmax 10 mmHg LVOTd 1.9 cm (1.8cm - 2cm) AV PGmean 5 mmHg LVOT VTI 20.9 cm (18cm - 22cm) AV Vmax 1.6 m/s LVDd, 2D 4.9 cm (3.9cm - 5.3cm) JAYDE (Vmax) 1.6 cm2 LVDs, 2D 2.9 cm (2.1cm - 4cm) JAYDE (VTI) 1.9 cm2 IVSd, 2D 1 cm (0.6cm - 1.1cm) MV E Vmax 0.56 m/s LVPWd, 2D 1 cm MV A Vmax 0.95 m/s LVEF, 2D 72 % (54% - 74%) MV E/A 0.59 LVOT PGmean 2 mmHg MV E/E' lateral 10.8 LVOT Vmean 0.65 m/s MV E/E' septal 12.5 (0.45 - 1.25) LA Volume, BP 77 ml (22ml - 52ml) MV E' septal 0.04 m/s LADs, 2D 4.6 cm (2.7cm - 3.8cm) MV E' lateral 0.05 m/s LAESV index, BP 43.5 ml/m2 MV E/E' mean 12.44 Additional Vessels MV E' mean 0.04 m/s Label Value Normal Value TV/PV AoRoot, MM 3.4 cm (2.2cm - 3.7cm) Label Value Normal Value RA Pressure 5 mmHg RVSP 28 mmHg TR Pmax 23 mmHg TR Vmax 2.4 m/s Patient: RAÚL MOJICA Study Date: 09/03/2018 Page 1 of 2 04:14 PM PV PGmax 4 mmHg PV Vmax, Caliper 1.05 m/s (0.6m/s - 0.9m/s) Conclusions 1. The left ventricle is normal in size and function. The ejection fraction is 70 75%. 2 There is mitral annular calcification. There is normal leaflet mobility. There was mild mitral regurgitation. 3. The aortic valve is normal in structure and function. 4. The pulmonary artery pressure estimate is within normal limits. 5. When compared to the 01/30/2018 study there is no significant change. Findings Left Ventricle: Left ventricle is normal in size. Normal global systolic left ventricular function. EF range is estimated at 70 % - 75 %. Left ventricle wall thickness is normal. There are no regional wall motion abnormalities. Grade I Diastolic Dysfunction. Right Ventricle: Normal size right ventricle. Right ventricular systolic function is normal. Left Atrium: The left atrium is normal in size. Right Atrium: The right atrium is normal in size. There appears to be a central line in the right atrium. Mitral Valve: Normal . Trivial to mild mitral regurgitation. No mitral valve stenosis. Aortic Valve: Aortic leaflets exhibit normal cuspal separation. No aortic valve regurgitation. There is no aortic stenosis. Tricuspid Valve: Tricuspid valve leaflets are normal in appearance and function. Trivial tricuspid regurgitation. No tricuspid valve stenosis. Right Ventricular systolic pressure is measured at 28 mmHg. Pulmonary artery pressure normal. Pulmonic Valve: Pulmonic leaflets exhibit normal cuspal separation. No pulmonic valve regurgitation is evident. There is no pulmonic valve stenosis. Aorta: The aorta is normal. The aortic root size in M-mode measures 3.4 cm. Aorta Measurements AoRoot, MM is 3.4 cm. Pulmonary Artery: The pulmonary artery morphology appears normal. IVC: The inferior vena cava is normal in size and course. Pericardium: No pericardial effusion. No pleural effusion present. Exam Details Procedure Ordered: Echo (No Signature Object) Patient: RAÚL MOJICA Study Date: 09/03/2018 Page 2 of 2 04:14 PM [id number]
--- NOTE | 2018-09-03 18:54 | GCON ---
[f rep st] CONSULTATION CHEST CONSULTATION REFERRING PHYSICIAN: Rey Waters MD REASON FOR CONSULTATION: Hypoxemia and atelectasis. HISTORY OF PRESENT ILLNESS: The patient is a very pleasant 77-year-old white female with a past [facility] history, including depression, hyperlipidemia, hypertension, and irritable bowel syndrome. She w as admitted on 09/01/2018, through the emergency room with hypoxemia of unknown etiology. This is as sociated with increased weakness. She has been seen by Dr. Kenroy Lopez, Pulmonology. She has been seen by Dr. Alexander Finnegan for workup of weakness, but this has not been performed yet. In discussion, the patient states that she has been breathless and hypoxemic since late December. She has been on oxygen 09/12 since then. Her oxygen requirements have worsened. She denies any c ough or production of sputum. There is no chest pain, pleuritic-type chest pain, or angina equivalen t. She denies any fever or night sweats. She is a lifelong never smoker. REVIEW OF SYSTEMS: Ten-point review of systems performed and negative, except for what is listed in HPI. PAST MEDICAL HISTORY: Again significant for depression, hyperlipidemia, hypertension, paraganglioma, and hypoxemia. FAMILY HISTORY: Noncontributory. PAST SURGERIES: An ankle fracture, hysterectomy, and paraganglioma excision. MEDICATIONS: At home, include oxygen, ProAir, and Dulera. ALLERGIES: Sulfa. SOCIAL HISTORY: She is a lifelong never smoker. Infrequent alcohol use. She is retired. She is wi dowed. Three of her five children are present and she has excellent family support. PHYSICAL EXAM: VITAL SIGNS: Blood pressure 132/82, pulse 100, respirations 26, temperature 36.5, ox ygen saturation 100% on 3 L. GENERAL: She is a well-developed, well-nourished, elderly white female who is resting comfortably on supplemental oxygen. HEENT: Eyes: MARVIN, EOMI. Throat shows no eryt dayanara or tonsillar hypertrophy. NECK: Supple. There is no cervical adenopathy. HEART: Regular rat e and rhythm with a 2/6 systolic murmur at the left sternal border, without radiation. LUNGS: Dimin ished breath sounds, a few bibasilar crackles. There is no wheeze. ABDOMEN: Soft, nontender. Lizeth l sounds are present. EXTREMITIES: No clubbing, cyanosis, or edema. LABORATORIES: White count 4.9, hemoglobin 10, hematocrit 33, platelet count is 144, MCV is elevated at 103. Sodium 134, potassium 3.8, chloride 84, CO2 is 45, BUN 8, creatinine 0.4, glucose is 98. Ur inalysis is negative. Arterial blood gas dated 09/01/2018, shows pH 7.39, pCO2 of 78, pO2 of 38, bic arb 48, oxygen saturation 46% that is on room air. Arterial blood gas dated 09/02/2018, shows pH 7.2 7, pCO2 of 105, pO2 of 48, bicarb is 46, oxygen saturation 97%, that is on 4 L. Fluoroscopy dated , shows decreased inspiratory and expiratory excursion, but no evidence of paralysis of the d iaphragms. Arterial blood gas dated July 20, 2018 shows pH 7.49, pCO2 44, pO2 of 51, bicarb 33, oxyg en saturation 90%. Pulmonary function testing dated June 04, 2018, reveals moderate restrictive physiology, but a nor mal diffusion capacity. IMPRESSION: 1. Hypercarbic respiratory failure, etiology of which is unclear. Query whether this is in a combin ation of neuromuscular weakness, as well as atelectasis cause from elevated hemidiaphragms. Pulmonar y function testing revealed restrictive physiology, which would likely not contribute to hypercarbia. 2. Hypoxemia. 3. Atelectasis with elevated hemidiaphragms. 4. Macrocytic anemia. etiology of which is unclear. 5. Depression. 6. Hyperlipidemia. 7. History of hypertension. 8. Paraganglioma. RECOMMENDATIONS: 1. Will obtain a repeat arterial blood gases as soon as possible. 2. Will obtain a vital capacity to assess neuromuscular strength. MMV on pulmonary funct ion testing would be more helpful, but unable to be obtained in the hospital. 3. Will check an echocardiogram. 4. If the patient continues hypercarbia, we will transfer to the step-down unit and start patient on BiPAP. 5. Patient has requested intubation if necessary. To this regard, we will change her code status. 6. Would consider Neurology consultation. Thank you very much for allowing me to participate in the care of this interesting patient. Will fol low along with you. /[id number]/MODL
[2018-09-03] MEDS: traZODone 50 MG TAB PO SCH (21:18)
[2018-09-03] MEDS: MELATONIN 3 MG TAB PO SCH (21:18)
[2018-09-03] MEDS ORDERED: NS 1,000 ML IV ONE (22:19)
[2018-09-03] MEDS ORDERED: ATROPINE SULFATE 1 MG/10 ML SYR ONE (22:25)
--- NOTE | 2018-09-03 22:49 | HOSPPROG ---
Hospitalist Progress Note Assessment/Plan: Hospitalist night float note Paged by RN regard hurting sudden drop in blood pressure the SBP in the 60s and heart rate radiating down from 90s down to 30s. 1 L fluid bolus was ordered Patient was unresponsive, diaphoretic. She was placed in Trendelenburg. Patient saturations greater than 90% on BiPAP. In chart and per RN patient cor status change to limited today. She was amenable to intubation only no other cardiac resuscitation. I called patient's daughter jeremías notified her of sudden change in status. Discussed patient's cor status. Dr. Barraza earlier in the day had a discussion with the patient. Discussion to consider low-dose of peripheral Levophed to see if patient's blood pressures would recover. Yun was amenable to initiate pressor support and she would communicate with her brothers. I return to go re-evaluate the patient heart rate had improved to the 90s and blood pressure systolic had improved 110. Will hold off on pressor support but it is available p.r.n.. Once patient mentation is a little bit more improved will readdress patient's wishes. Patient's daughter is on route and well a additionally discussed with her and the patient when she arrives. Objective: Vital Signs Temp Pulse Resp BP Pulse Ox 36.3 C 78 25 H 134/80 H 98 09/03/18 17:07 09/03/18 21:20 09/03/18 21:20 09/03/18 20:00 09/03/18 21:20 09/02/18 09/03/18 09/04/18 05:59 05:59 05:59 Intake Total 100 Balance 100 PT 12.1 SEC (12.0-15.0) 09/01/18 15:50 INR 0.93 (0.83-1.16) 09/01/18 15:50 ICD10 Worksheet Patient Problems: Problems Problem Status Onset Carotid body tumor Acute Hypoxia Acute
[2018-09-03] MEDS ORDERED: NOREPINEPHRINE BITARTRATE 4 MG in NS 500 ML IV SCH (23:00)
[2018-09-04] MEDS: Mometasone/Formoterol [Dulera] 200 Mcg/5 Mcg Inhaler IH SCH ×3 (02:19→22:17)
--- NOTE | 2018-09-04 07:47 | CPEKG ---
Test Reason : OPEN Blood Pressure : / mmHG Vent. Rate : 100 BPM Atrial Rate : 101 BPM P-R Int : 155 ms QRS Dur : 081 ms QT Int : 330 ms P-R-T Axes : 032 -29 014 degrees QTc Int : 426 ms Sinus tachycardia Left ventricular hypertrophy Confirmed by Shukri Baer ([id number]) on 09/04/2018 7:46:00 AM Referred By: Shukir Baer Confirmed By:Shukri Baer
--- NOTE | 2018-09-04 08:50 | PDINTPN ---
Industrial Renderer Progress Note Assessment/Plan: Assessment/plan: * Neuromuscular weakness-etiology is unclear. MRI pending. -Neurology to see today * Poorly moving hemidiaphragms-unclear cause. * Severe Hypercarbic respiratory failure-pCO2 down from 100 to the 60s with BiPAP. This likely is secondary to diaphragmatic weakness as well as neuromuscular weakness. Negative inspiratory force and vital capacity were markedly low. Echo normal -continue BiPAP for now -repeat NIF and vital capacity today * Confusion-markedly worse despite reduction hypercarbia. Apparently not sleeping, which could be the cause * Insomnia -will provide sleeping pill tonight * VT prophylaxis * Stress ulcer prophylaxis * Nutrition-improved * Code status-now limited cor Subjective: Sitting up in chair eating breakfast. Somewhat confused this morning. Oriented x2. Objective: Vital Signs Temp Pulse Resp BP Pulse Ox 37.1 C 100 24 H 139/77 H 95 09/04/18 07:15 09/04/18 07:15 09/04/18 07:15 09/04/18 07:15 09/04/18 07:15 Laboratory Results 09/04/18 04:30 09/04/18 04:30 09/03/18 09/04/18 09/05/18 05:59 05:59 05:59 Intake Total 1500 Output Total 900 Balance 600 PT 12.1 SEC (12.0-15.0) 09/01/18 15:50 INR 0.93 (0.83-1.16) 09/01/18 15:50 Laboratory Results 09/04/18 04:30 09/04/18 04:30 09/04/18 04:30 Patient Temperature 36.3 DEGREES DEGREES pCO2 66 mmHg H mmHg (34 - 38) pO2 69 mmHg mmHg (65 - 75) Total CO2 44 mEq/L H* mEq/L (23 - 27) ABG pH 7.42 (7.35 - 7.45) ABG HCO3 42 mEq/L H mEq/L (22 - 26) ABG O2 Saturation 95 % % (92 - 95) ABG Base Excess 15.5 mEq/L H mEq/L (-2.5 - 2.5) Inspiratory Pressure 15 Mode BiPAP YES - Time Spent With Patient Time Spent With Patient: 35 min of time spent with patient, over 1/2 involved coordination of care or counseling. Case discussed with Nursing and Respiratory therapy Physical Exam - Physical Exam General Appearance: alert EENT: PERRL/EOMI Neck: non-tender, supple Respiratory: crackles (Bibasilar), No respiratory distress, No wheezing Cardiac/Chest: normal peripheral pulses, regular rate, rhythm Peripheral Pulses: 2+: carotid (R), carotid (L), femoral (R), femoral (L), dorsalis-pedis (R), dorsalis-pedis (L) Abdomen: normal bowel sounds, non-tender, soft Pelvic Exam: deferred Rectal: deferred Skin: warm/dry Extremities: non-tender Neuro/Psych: alert, No oriented x 3 ICD10 Worksheet Patient Problems: Problems Problem Status Onset Hypoxia Acute Carotid body tumor Acute
--- NOTE | 2018-09-04 10:05 | NEUROPROG ---
Assessment: [id number] - Neurology Consult: - CC: Progressive Diaphragm Weakness - HPI: 09/04/18: Pt with unexplained chronic hypoxia since 2018 felt to likely be from diaphragm weakness that has been worsening over the last few weeks. Hospitalist note reported it could be from a phrenic nerve injury from a 2017 carotid surgery. Type Photography Supervisor was not certain of cause so recommended neurology consultation. Her neurologic exam had no focal deficits and brain MRI wo showed no explanation for her symptoms. Plan is to obtain cervical MRI wo to assess for any explanation of her diaphragm weakness. If this is unrevealing I would recommend as the next step in evaluation an EMG/NCS with our neuromuscular expert, Dr. Ady Miguel. At this time I do not know what is causing her diaphragm weakness. If it is a phrenic nerve injury from prior surgery then treatment would be supportive care as is being provided by pulmonology. - PMHx: hypoxia, depression, HLD, HTN, paraganglioma with excision PSHx: ankle fx, choli, hysterectomy - SHx: no tobacco FHx: colon ca - ROS: Pt denied acute fever, total vision loss, active severe chest pain, respiratory failure, total body severe rash, total bowel/bladder incontinence, psychosis, active seizures, or active bleeding - O: VS reviewed General: Alert Eyes: Fundoscopic exam not able to visualize optic disks CV: Heart RRR, no murmur, no carotid bruit Lungs: Clear to auscultation bilaterally, no rhonchi or rales Neuro: - Mental: . Oriented x person/place/date . concentration appears normal . speech fluency/comprehension normal . memory appears normal . fund of knowledge appear intact - Cranial Nerves: . II: PERRL, VFFTC . III/IV/: EOMI, no nystagmus, normal smooth pursuits, no Ptosis . V: facial sensation intact to LT . VII: face symmetric to eye closure and smile . VIII: hearing intact to conversation . IX/X: uvula raises symmetrically . XI: SCM 5/5 B/L strength . XII: tongue protrudes midline w/nl strength - Motor: . Tone: normal tone in all 4 extremity . Strength: no focal weakness - Reflexes: B/L bic 2/4 - Sensory: all 4 extremity intact to light touch - Coord: TY wnl, afml-pm-pemf wnl - Gait: deferred - Labs: 08/28/18- Na 135 - Rads: 08/27/18- CXR: Chronic features with bibasilar subsegmental atelectasis and/or parenchymal fibrosis and mild elevation of the right hemidiaphragm, similar to previous studies in July 2018 and January 2018. - 09/02/18- Brain MRI wo: no acute changes, mild atrophy and moderate CMVD (I personally visualized the images on 09/04/18) - Assessment: 1. Hypoxia due to diaphragm weakness: Her neurologic exam had no focal deficits and brain MRI wo showed no explanation for her symptoms. Plan is to obtain cervical MRI wo to assess for any explanation of her diaphragm weakness. If this is unrevealing I would recommend as the next step in evaluation an EMG /NCS with our neuromuscular expert, Dr. Ady Miguel. At this time I do not know what is causing her diaphragm weakness. If it is a phrenic nerve injury from prior surgery then treatment would be supportive care as is being provided by pulmonology. - Plan: - Agree with plan to obtain cervical MRI wo, if this does not determine cause of diaphragm weakness I would recommend pt f/u in outpt setting for EMG/NCS with Dr. Miguel (EMG/NCS not available inpatient) Objective: Vital Signs Temp Pulse Resp BP Pulse Ox 37.1 C 100 24 H 139/77 H 95 09/04/18 07:15 09/04/18 07:15 09/04/18 07:15 09/04/18 07:15 09/04/18 07:15 Laboratory Results 09/04/18 04:30 09/04/18 04:30 09/03/18 09/04/18 09/05/18 05:59 05:59 05:59 Intake Total 1500 Output Total 900 Balance 600 PT 12.1 SEC (12.0-15.0) 09/01/18 15:50 INR 0.93 (0.83-1.16) 09/01/18 15:50 Allergies/Adverse Reactions: Sulfa (Sulfonamide Antibiotics) Allergy (Verified 09/01/18 15:32)
--- NOTE | 2018-09-04 10:12 | HOSPPROG ---
Hospitalist Progress Note Assessment/Plan: DIAGNOSES: * Acute metabolic encephalopathy from CO2 retention and likely also from her underlying illness * Profound diffuse weakness with a reflexia * Acute hypoxemic and hypercarbic respiratory failure from bilateral diaphragmatic weakness * Hyponatremia with approximate euvolemia * Unremarkable MRI of the brain * Macrocytic anemia, uncertain etiology * History of carotid paraganglioma resected Notably despite use of BiPAP and a decrease in pCO2 from 100-60, the patient's mentation has continued to worsen and in fact she is now unresponsive, if not coma toes is very close to meeting definition of that. She has a hypo reflects sick weakness with functioning pupils MRI of the brain is really unrevealing Her arreflexia is inconsistent with spine disease as his her change in mentation. Absence of spasticity argue against tetanus disease. Her decreased mentation would make botulism or a primary myositis type illness unlikely. Differential diagnosis could include acute adrenal disease, Guillain-[place] syndrome with a cause that would produce decreased mentation, hypothyroidism though the pace of illness makes this less likely, as well as other illnesses. PLANS: * Continue to support respiration with BiPAP and oxygen * Await Neurology consultation * An MRI of the C-spine has been ordered. I think this will probably not give us are answer but will proceed with that to be certain * I have ordered labs including B12, TSH, cortisol level, CPK, sed rate Seen by me on hospitals rounds as well as multidisciplinary rounds, I reviewed in detail today with Dr. Kenroy Barraza SUBJECTIVE: The patient is unarousable to me so no symptom is available I reviewed with Dr. Barraza. Despite BiPAP and successful significant decrease in CO2, he describes that she is more confused today than yesterday. (during his examination earlier this morning she was still awake but confused) OBJECTIVE Vitals reviewed: Some hypertension otherwise stable without fever Rib Bender, my review: Sinus Exam: Lying in bed supine with CPAP on Neurologic: entirely unresponsive to me, no fasciculations or muscle twitches, no asymmetry of facial muscles or pupils, a reflexia at the knees ankles and forearms, negative testing for Babinski sign and clonus; unable to test strength skin warm dry color ok resps not labored lungs clear BSs heart regular abd soft nondistended nontender, bowel sounds present limbs warm, trace edema of legs iv site ok Objective: Vital Signs Temp Pulse Resp BP Pulse Ox 37.1 C 100 24 H 139/77 H 95 09/04/18 07:15 09/04/18 07:15 09/04/18 07:15 09/04/18 07:15 09/04/18 07:15 Laboratory Results 09/04/18 04:30 09/04/18 04:30 09/03/18 09/04/18 09/05/18 06:59 06:59 06:59 Intake Total 1500 Output Total 900 Balance 600 PT 12.1 SEC (12.0-15.0) 09/01/18 15:50 INR 0.93 (0.83-1.16) 09/01/18 15:50 - Time Spent With Patient Time Spent with Patient: greater than 35 minutes Time Spent with Patient: Greater than 35 minutes spent on this patients care, greater than 50% of time spent counseling, educating, and coordinating care regarding the above mentioned plan. ICD10 Worksheet Patient Problems: Problems Problem Status Onset Hypoxia Acute Carotid body tumor Acute
[2018-09-04 10:36] LABS: CREATINE KINASE 28 IU/L (0-156)
[2018-09-04] MEDS: ENOXAPARIN 40 MG/0.4 ML SYR SC SCH (10:51)
--- NOTE | 2018-09-04 12:30 | ASMTCMCOM ---
CM Note CM Note Notes: Spoke with Dolores from [facility] and she clarified [employer] insurance will give out multiple auth's and then confirm when the final facility is chosen. [facility] had gotten auth, however, the patient's first choice is [facility]. [facility] remains the d/c plan when patient is medically clear as they have accepted the patient as well. CM will follow. Date Signed: 09/04/2018 12:29 PM Electronically Signed By:Jacqueline Escoto LCSW
[2018-09-04] MEDS ORDERED: NS 1,000 ML IV SCH (18:00)
[2018-09-04] MEDS ORDERED: IOPAMIDOL (ISOVUE-300) 100 ML BTL ONE (21:04)
[2018-09-04] MEDS: traZODone 50 MG TAB PO SCH (21:39)
[2018-09-04] MEDS: MELATONIN 3 MG TAB PO SCH (21:40)
--- NOTE | 2018-09-05 08:51 | PDINTPN ---
Gear Machine Operator General Progress Note Assessment/Plan: Assessment/plan: * Neuromuscular weakness-etiology is unclear. MRI of C-spine is pending -appreciate Neurology input * Poorly moving hemidiaphragms-unclear cause. Perhaps from previous surgery * Severe Hypercarbic respiratory failure-pCO2 down from 100 to the 60s with BiPAP. This likely is secondary to diaphragmatic weakness as well as neuromuscular weakness. Negative inspiratory force and vital capacity were markedly low. Echo normal -continue BiPAP -recheck ABG this morning -repeat NIF and vital capacity today * Atrial fibrillation-new this morning -check EKG -start amiodarone * Confusion-better this morning * Insomnia * VT prophylaxis * Stress ulcer prophylaxis * Nutrition-improved * Code status-do not resuscitate Subjective: Sitting up in chair. Used BiPAP until approximately 530 this morning. Objective: Vital Signs Temp Pulse Resp BP Pulse Ox 36.6 C 106 H 19 114/72 90 L 09/05/18 04:00 09/05/18 08:00 09/05/18 08:00 09/05/18 08:00 09/05/18 08:00 Laboratory Results 09/04/18 04:30 09/04/18 04:30 09/04/18 09/05/18 09/06/18 05:59 05:59 05:59 Intake Total 1500 1600 Output Total 900 2200 125 Balance 600 -600 -125 PT 12.1 SEC (12.0-15.0) 09/01/18 15:50 INR 0.93 (0.83-1.16) 09/01/18 15:50 - Time Spent With Patient Time Spent With Patient: 35 min of time spent with patient, over 1/2 involved coordination of care counseling. Case discussed with nursing Physical Exam - Physical Exam General Appearance: alert, no apparent distress, other (Little confused) EENT: PERRL/EOMI Neck: non-tender, supple Respiratory: crackles (Bibasilar), No respiratory distress, No wheezing Cardiac/Chest: normal peripheral pulses, irregularly irregular Peripheral Pulses: 2+: carotid (R), carotid (L), femoral (R), femoral (L), dorsalis-pedis (R), dorsalis-pedis (L) Abdomen: normal bowel sounds, non-tender, soft Pelvic Exam: deferred Rectal: deferred Skin: normal color, warm/dry Extremities: non-tender Neuro/Psych: alert ICD10 Worksheet Patient Problems: Problems Problem Status Onset Hypoxia Acute Carotid body tumor Acute
[2018-09-05] MEDS ORDERED: AMIODARONE A.FIB-6HR INFSN (ORDER 2/3) PREMIX IV ONE (09:00)
[2018-09-05] MEDS ORDERED: AMIODARONE A.FIB-LOAD DOSE(ORDER 1/3) PREMIX IV ONE (09:00)
[2018-09-05] MEDS ORDERED: AMIODARONE A.FIB-18HR INFSN (ORDER 3/3) IV ONE ×2 (09:00→15:00)
[2018-09-05] MEDS: Mometasone/Formoterol [Dulera] 200 Mcg/5 Mcg Inhaler IH SCH ×2 (09:20→23:13)
[2018-09-05] MEDS: ENOXAPARIN 40 MG/0.4 ML SYR SC SCH (09:20)
--- NOTE | 2018-09-05 09:43 | HOSPPROG ---
Hospitalist Progress Note Assessment/Plan: DIAGNOSES: * Acute metabolic encephalopathy from CO2 retention and likely also from her underlying illness * Postural weakness, marked, with some decrease in tendon reflexes * Acute hypoxemic and hypercarbic respiratory failure from bilateral diaphragmatic weakness * Hyponatremia with approximate euvolemia * Vitamin B 12 deficinecy with Macrocytic anemia * History of carotid paraganglioma resected It is possible that her illness is all due to B12 deficiency, need to check MMA There are no signs of vasculitis, immune illness, or myositis on lab studies Her CT scan shows no signs of mass or other lesion on the left side of the neck to cause a phrenic nerve lesion PLANS: * Continue to support respiration with BiPAP and oxygen * stat MMA level * Begin stat vitamin B12 parenterally * Will try to get MRI of her spine today, will need to treat her with BiPAP aggressively leading up to it and take her off to do the MRI * Continue other supportive care * DVT prophylaxis Seen by me on hospitals rounds as well as multidisciplinary rounds, I reviewed in detail today with Dr. Kenroy Barraza SUBJECTIVE: Today she is awake, says she feels weak and tired but no other discomfort Did eat a good breakfast today according to her nurse and there was no evidence of aspiration during eating OBJECTIVE Vitals reviewed: Some hypertension otherwise stable without fever Manager Casino, my review: Sinus Exam: Sitting up in chair Awake attentive conversant, but with clear memory deficits and some degree of disorientation No cranial nerve abnormalities. She has excellent distal strength. Her shoulders are a bit weak. Unable to test her hip girdle strength in the chair right now but we have noticed postural weakness here and that is her main complaint from home. Tendon reflexes remain diminished skin warm dry color ok resps not labored lungs clear BSs heart regular abd soft nondistended nontender, bowel sounds present limbs warm, trace edema of legs iv site ok Lab data ABG 7.26, pCO2 106, PO2 100 on oxygen TSH 1.9 CPK 28, a.m. Cortisol 17.8, ESR and CRP are undetectable Vitamin B12, low 288 Objective: Vital Signs Temp Pulse Resp BP Pulse Ox 36.6 C 106 H 19 114/72 90 L 09/05/18 04:00 09/05/18 08:00 09/05/18 08:00 09/05/18 08:00 09/05/18 08:00 Laboratory Results 09/04/18 04:30 09/04/18 04:30 09/04/18 09/05/18 09/06/18 06:59 06:59 06:59 Intake Total 1500 1600 Output Total 900 2200 125 Balance 600 -600 -125 PT 12.1 SEC (12.0-15.0) 09/01/18 15:50 INR 0.93 (0.83-1.16) 09/01/18 15:50 - Time Spent With Patient Time Spent with Patient: greater than 35 minutes Time Spent with Patient: Greater than 35 minutes spent on this patients care, greater than 50% of time spent counseling, educating, and coordinating care regarding the above mentioned plan. ICD10 Worksheet Patient Problems: Problems Problem Status Onset Hypoxia Acute Carotid body tumor Acute
[2018-09-05] MEDS: CYANO/VITAMIN B12 1000 MCG/ML VIAL IM SCH (10:23)
[2018-09-05] MEDS ORDERED: GADOBUTROL 10 ML VIAL IVP ONE (11:00)
[2018-09-05] MEDS ORDERED: LORazepam 2 MG/ML INJ ONE (11:54)
[2018-09-05] MEDS ORDERED: LORazepam 2 MG/ML INJ IVP ONE (12:15)
--- NOTE | 2018-09-05 15:33 | CPEKG ---
Test Reason : OPEN Blood Pressure : / mmHG Vent. Rate : 096 BPM Atrial Rate : 109 BPM P-R Int : 187 ms QRS Dur : 087 ms QT Int : 337 ms P-R-T Axes : 038 -18 026 degrees QTc Int : 426 ms Left ventricular hypertrophy Confirmed by Subha Salas ([id number]) on 09/05/2018 3:33:03 PM Referred By: Debi Valadez Confirmed By:Subha Salas
[2018-09-05] MEDS: traZODone 50 MG TAB PO SCH (20:15)
[2018-09-05] MEDS: MELATONIN 3 MG TAB PO SCH (20:15)
[2018-09-06 05:04] LABS: PLATELET COUNT 137 10^3/uL (150-400)
--- NOTE | 2018-09-06 09:01 | HOSPPROG ---
Hospitalist Progress Note Assessment/Plan: DIAGNOSES: * Acute metabolic encephalopathy from CO2 retention and likely also from her underlying illness * Postural weakness, marked, with some decrease in tendon reflexes * Acute hypoxemic and hypercarbic respiratory failure from bilateral diaphragmatic weakness * Hyponatremia with approximate euvolemia * Vitamin B 12 deficinecy with Macrocytic anemia * History of carotid paraganglioma resected It is possible that her illness is all due to B12 deficiency, need to check MMA There are no signs of vasculitis, immune illness, or myositis on lab studies Her CT scan shows no signs of mass or other lesion on the left side of the neck to cause a phrenic nerve lesion PLANS: * Continue to support respiration with BiPAP and oxygen * stat MMA level * Begin stat vitamin B12 parenterally * Will try to get MRI of her spine today, will need to treat her with BiPAP aggressively leading up to it and take her off to do the MRI * Continue other supportive care * DVT prophylaxis Seen by me on hospitals rounds as well as multidisciplinary rounds, I reviewed in detail today with Dr. Kenroy Barraza SUBJECTIVE: Remains very weak and tired No other new symptoms OBJECTIVE Vitals reviewed: Currently tachycardic with pulse 105, otherwise stable vitals no fever Lokie Driver, my review: Sinus Still requiring intermittent BiPAP for respiratory acidosis with pH 7.2 pCO2 greater than 100 at times Using 15 L oxygen by OxyMask at this time Exam: Sitting up in chair Awake attentive conversant, but with clear memory deficits, slow mentation No cranial nerve abnormalities. Still with shoulder and truncal weakness skin warm dry color ok resps not labored but extremely shallow lungs very diminished but clear BSs heart regular abd soft nondistended nontender, bowel sounds present limbs warm, trace edema of legs iv site ok Lab data CO2 on chemistry remains elevated at 43 Stable renal function Electrolytes stable Methylmalonic acid still pending Hemoglobin has decreased to 9, MCV 101.8 Imaging: I reviewed images from her MRI of cervical spine Dr. Ferro, there is significant motion artifact but no definite cord abnormalities seen. There is some degree of canal stenosis from disc bulging however not severe and no apparent cord injury from this Objective: Vital Signs Temp Pulse Resp BP Pulse Ox 36.1 C 102 H 15 124/72 H 96 09/06/18 07:54 09/06/18 07:54 09/06/18 07:54 09/06/18 07:54 09/06/18 07:54 Laboratory Results 09/06/18 04:45 09/06/18 04:45 09/05/18 09/06/18 09/07/18 06:59 06:59 06:59 Intake Total 1600 300 Output Total 2200 125 Balance -600 175 PT 12.1 SEC (12.0-15.0) 09/01/18 15:50 INR 0.93 (0.83-1.16) 09/01/18 15:50 - Time Spent With Patient Time Spent with Patient: greater than 35 minutes Time Spent with Patient: Greater than 35 minutes spent on this patients care, greater than 50% of time spent counseling, educating, and coordinating care regarding the above mentioned plan. ICD10 Worksheet Patient Problems: Problems Problem Status Onset Hypoxia Acute Carotid body tumor Acute
[2018-09-06] MEDS: CYANO/VITAMIN B12 1000 MCG/ML VIAL IM SCH (09:38)
[2018-09-06] MEDS: ENOXAPARIN 40 MG/0.4 ML SYR SC SCH (09:38)
[2018-09-06] MEDS: Mometasone/Formoterol [Dulera] 200 Mcg/5 Mcg Inhaler IH SCH (09:44)
--- NOTE | 2018-09-06 10:26 | PDINTPN ---
Pigment Weigher Progress Note Assessment/Plan: Assessment/plan: * Neuromuscular weakness-etiology is unclear. MRI of C-spine reveals no impingement. While B12 deficiency can cause neuromuscular weakness, it would be distinctly unusual for this to be the cause of selective neuromuscular/ diaphragmatic weakness -continue monitoring * Poorly moving hemidiaphragms-unclear cause. Perhaps from previous surgery * B 12 deficiency -replace * Severe Hypercarbic respiratory failure-pCO2 down from 100 to the 60s with BiPAP. This likely is secondary to diaphragmatic weakness as well as neuromuscular weakness. Negative inspiratory force and vital capacity remain markedly low. Echo normal -continue BiPAP 09/12 -recheck ABG in a.m. -repeat NIF and vital capacity in a.m. * Atrial fibrillation-resolved * Confusion-when off BiPAP. Concise with elevated pCO2 * Insomnia * VT prophylaxis * Stress ulcer prophylaxis * Nutrition-improved * Code status-do not resuscitate * Disposition -will consult palliative care Subjective: Somnolent. Objective: Vital Signs Temp Pulse Resp BP Pulse Ox 36.1 C 102 H 15 124/72 H 96 09/06/18 07:54 09/06/18 07:54 09/06/18 07:54 09/06/18 07:54 09/06/18 07:54 Laboratory Results 09/06/18 04:45 09/06/18 04:45 09/05/18 09/06/18 09/07/18 05:59 05:59 05:59 Intake Total 1600 300 240 Output Total 2200 125 Balance -600 175 240 PT 12.1 SEC (12.0-15.0) 09/01/18 15:50 INR 0.93 (0.83-1.16) 09/01/18 15:50 - Time Spent With Patient Time Spent With Patient: 35 min of time spent with patient, over 1/2 involved with coordination of care counseling. Case discussed with Nursing and hospitalist Physical Exam - Physical Exam General Appearance: other (Somnolent), No alert EENT: PERRL/EOMI Neck: non-tender, supple Respiratory: respiratory distress (Moderate), crackles (Bibasilar), No wheezing Cardiac/Chest: normal peripheral pulses, regular rate, rhythm Abdomen: normal bowel sounds, non-tender, soft Pelvic Exam: deferred Rectal: deferred Skin: warm/dry Extremities: non-tender, normal inspection Neuro/Psych: alert, oriented x 3 ICD10 Worksheet Patient Problems: Problems Problem Status Onset Hypoxia Acute Carotid body tumor Acute
--- NOTE | 2018-09-06 14:27 | NEUROPROG ---
Assessment: [id number] - Neurology Consult: - CC: Progressive Hypoxia suspected to be from cryptogenic Diaphragm Weakness - Narrative Summary: 09/04/18: Pt with unexplained chronic hypoxia since 2018 felt to likely be from diaphragm weakness that has been worsening over the last few weeks. Hospitalist note reported it could be from a phrenic nerve injury from a 2017 carotid surgery. Trading Floor Operator was not certain of cause so recommended neurology consultation. Her neurologic exam had no focal deficits and brain MRI wo showed no explanation for her symptoms. Plan is to obtain cervical MRI wo to assess for any explanation of her diaphragm weakness. If this is unrevealing I would recommend as the next step in evaluation an EMG/NCS with our neuromuscular expert, Dr. Ady Miguel. At this time I do not know what is causing her diaphragm weakness. If it is a phrenic nerve injury from prior surgery then treatment would be supportive care as is being provided by pulmonology. - HPI: F/U 09/06/18. MRI cervical spine showed no clear cause of her symptoms. It did show moderate spinal canal stenosis which seems unlikely to be causing her symptoms. No further inpt neurologic w/u available at this time. Pt can f/u after discharge with neurology for EMG/NCS outpatient. If pt continues to worsen and cannot be discharged then hospitalist could consider transfer to [facility] for inpt EMG/NCS to further investigate her complaint. If pt fails to improve and it appears she will continue to worsen it may be worth considering a palliative care consult. Neurology will sign off at this time. - PMHx: hypoxia, depression, HLD, HTN, paraganglioma with excision PSHx: ankle fx, choli, hysterectomy - SHx: no tobacco FHx: colon ca - ROS: Pt denied acute fever, total vision loss, active severe chest pain, respiratory failure, total body severe rash, total bowel/bladder incontinence, psychosis, active seizures, or active bleeding - Labs: 08/28/18- Na 135 - Rads: 08/27/18- CXR: Chronic features with bibasilar subsegmental atelectasis and/or parenchymal fibrosis and mild elevation of the right hemidiaphragm, similar to previous studies in July 2018 and January 2018. - 09/02/18- Brain MRI wo: no acute changes, mild atrophy and moderate CMVD - 09/04/18- Neck CT: No evidence for soft tissue mass or abnormal fluid collection in the neck. Evidence of mild atherosclerotic change in the carotid artery bilateral and evidence of prior vascular surgery on the right. - 09/05/18- Cervical MRI wo: Severe patient motion artifact markedly limits the diagnostic quality of this examination. Moderate multilevel acquired central canal stenosis of the cervical spine without cervical cord myelomalacia. - Assessment: 1. Hypoxia due to diaphragm weakness: Her neurologic exam had no focal deficits and brain MRI wo showed no explanation for her symptoms. - Plan: - If pt continues to worsen I would recommend considering a palliative care consult - Pt can f/u after discharge with neurology for EMG/NCS outpatient with our neuromuscular expert, Dr. Miguel. If pt continues to worsen and cannot be discharged then hospitalist could consider transfer to [facility] for inpt EMG/NCS to further investigate her complaint. Neurology will sign off at this time. - 35 min spent with patient and her nurse, majority of time spent counseling on condition, treatment options, and prognosis Objective: Vital Signs Temp Pulse Resp BP Pulse Ox 36.8 C 92 30 H 131/86 H 100 09/06/18 12:00 09/06/18 12:00 09/06/18 12:00 09/06/18 12:00 09/06/18 12:00 Laboratory Results 09/06/18 04:45 09/06/18 04:45 09/05/18 09/06/18 09/07/18 05:59 05:59 05:59 Intake Total 1600 300 240 Output Total 2200 125 Balance -600 175 240 PT 12.1 SEC (12.0-15.0) 09/01/18 15:50 INR 0.93 (0.83-1.16) 09/01/18 15:50 Allergies/Adverse Reactions: Sulfa (Sulfonamide Antibiotics) Allergy (Verified 09/01/18 15:32)
[2018-09-06 16:02] VITALS: BP 97/59
--- NOTE | 2018-09-06 16:42 | PDDCSUM ---
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 Alexander Finnegan neurology Dr. Justin Barraza pulmonology Critical Care PROCEDURES: Soft tissue CT scan of neck, unrevealing MRI of cervical spine, significant motion artifact, no identifiable cord abnormality, some degree of spinal stenosis from degenerative changes CT scan of head unrevealing MRI brain, no acute or revealing findings, some nonspecific white matter abnormalities CT of chest showing diaphragmatic elevation, some atelectasis Fluoroscopy showing minimal function of both diaphragms HOSPITAL COURSE SUMMARY: This patient presented with weeks or months of progressive fatigue weakness dyspnea and at presentation was significantly encephalopathic. She is found to be significantly hypoxemic with unrevealing chest imaging. Her CO2 on serum chemistry was at 46 and her initial blood gas had a pCO2 of 78 but subsequent pCO2 was up to 105 with a pH 7.27. Her initial room air saturation 75 with a PO2 of 38 response to oxygen, but she has required BiPAP therapy for persistent hypoventilatory changes with CO2 retention acidosis and worsened mentation. On examination she does have somewhat diminished tendon reflexes and probably has some mild postural weakness and shoulder girdle weakness, but has very good distal strength in the limbs. There are no focal cranial nerve abnormalities. She does not have spasticity or tremor. So far we have not found any specific therapy to offer acutely to help the breathing other than the BiPAP treatments. She does have a mild macrocytic anemia and given the above findings B12 levels tested and is at 280 with pending methylmalonic acid. Vitamin B12 treatments were started September 05 but it is uncertain whether these will help or whether the B12 is truly deficient and which if any of her problems might actually be due to B12 deficiency. It was considered that there may be other neurologic issues that could be assessed with neuro muscular testing but we are unable to provide that testing service here in our hospital. She is not felt to be able to discharge to outpatient setting at this time requiring her ongoing BiPAP therapy. There were significant ongoing discussions with the patient's family. It was recommended that they consider either palliative care or further diagnostic assessments at a higher level instead to. The family at this time is wishing to proceed with ongoing diagnostic evaluation. We contacted the intensive care service at [facility] and they are agreeing to accept her there today for ongoing therapy and diagnostic evaluation. PENDING TEST RESULTS: Methylmalonic acid MEDICATION CHANGES: Vitamin B12 1000 units parenteral daily was started on September 05 Bronchodilators added Trazodone and melatonin for sleep added FOLLOW-UP PLAN: At this time she is transfer to the [facility] intensive care unit for ongoing management of her respiratory issues and further diagnostic assessment. Greater than 35 minutes bedside and care coordination time today
== END 2018-09-06 18:15 | disposition short-term general hospital (02) | DRG 189 ==
LOC: F3E 21:35 → OBSVTOIN 09-03 16:00 → F2N 09-03 17:06
PROVIDERS: ADMIT Internal Medicine; ATTEND Internal Medicine
DX: J96.21 Acute and chronic respiratory failure with hypoxia (principal); J96.22 Acute and chronic respiratory failure with hypercapnia; G93.40 Encephalopathy, unspecified; G58.8 Other specified mononeuropathies; E53.8 Deficiency of other specified B group vitamins; J98.6 Disorders of diaphragm; F41.8 Other specified anxiety disorders; E87.1 Hypo-osmolality and hyponatremia; G47.00 Insomnia, unspecified; I48.91 Unspecified atrial fibrillation; D53.9 Nutritional anemia, unspecified; E78.5 Hyperlipidemia, unspecified; I10 Essential (primary) hypertension; Z99.81 Dependence on supplemental oxygen; Z91.81 History of falling; Z66 Do not resuscitate
CPT/HCPCS: 70551-PN; 82607-90; 83921-90; 84484-ER; 97162-GP; 97166-GO; 97530-GO; 97535-GO; A9585; G0378; J0282; J0461; J1650; J2060; J3420; J7613; Q9967

== ENCOUNTER → 2018-10-06 | Outpatient (CLI) | payer OTHER | LOC: CIMAGING 12:46 | PROVIDERS: ATTEND Nurse Practitioner | DX: R60.9 Edema, unspecified (principal); R79.89 Other specified abnormal findings of blood chemistry | CPT/HCPCS: 93970-PO ==